=== PATIENT | female | born 1945 | race Caucasian/White ===

== ENCOUNTER → 2024-03-13 13:05 | Outpatient (REF) | payer MEDICARE, SELFPAY | LOC: WDC 13:05 | PROVIDERS: ATTENDING PHYSICIAN Family Medicine | DX: Z12.31 Encounter for screening mammogram for malignant neoplasm of breast (principal) | CPT/HCPCS: 77063; 77067 ==

== ENCOUNTER 2024-09-16 18:33 | Emergency (ER) | payer MEDICARE, SELFPAY ==
[2024-09-16 18:34] VITALS: BMI 20.1
[2024-09-16 18:35] VITALS: BP 175/83
[2024-09-16 21:27] VITALS: BP 151/68
--- NOTE | 2024-09-16 22:08 | ED.GENMED ---
History of Present Illness
General
Chief Complaint: Musculo-Skeletal Complaint
Source: patient
Exam Limitations: none
Time Seen by Provider: 09/16/24 21:51
Nursing documentation reviewed up to this point in time: agreed with
History of Present Illness
History of Present Illness:
Patient presents to ED secondary to persistent left wrist pain, after she tripped on ice and fell backwards, landing on her buttocks with outstretched left hand. Patient denies any other injuries. No loss of sensation or weakness.
Past History
Past History
ED Past Medical History: None
ED Past Surgical History: Appendectomy and Gynecological
Patient has exhibited threatening behavior?: No
Social History
Tobacco: Non-smoker
Alcohol: None
Drug: None
Personal:
Living: with family
Review of Systems
Review of Systems
Allergies reviewed?: Yes
All Other Systems: ROS reviewed and negative except as documented in HPI and ROS
Constitutional: Reports no symptoms
Musculoskeletal: Reports other (Wrist pain)
Skin: Reports no symptoms
Neurological: Reports no symptoms
Phy Exam
Physical Exam
Physical Exam:
Physical Exam
General: mild painful distress, not acutely ill. afebrile
Head: nc/at. eomi
Neck: supple. normal range of motion
Neuro: alert and oriented x 3. no focal neurological deficits
Skin: no rash
Psychiatric: well kept. interactive and cooperative
Extremities: left wrist - swelling with tenderness to palpation without deformity
Course
Orders/Labs/Results
Orders:
Orders
09/16/24 18:38
CR Wrist - Left Min 3 Views Urgent
Comment:
Reason For Exam: injury, pain
Vital Signs
Initial and Last Documented VS:
Initial Vital Signs
Temp Pulse Resp BP Pulse Ox
97.9 F 86 16 175/83 99
09/16/24 18:35 09/16/24 18:35 09/16/24 18:35 09/16/24 18:35 09/16/24 18:35
Last Documented Vital Signs
Temp Pulse Resp BP Pulse Ox
97.9 F 70 18 151/68 100
09/16/24 18:35 09/16/24 21:27 09/16/24 21:27 09/16/24 21:27 09/16/24 21:27
MDM/Problems Addressed
MDM/Problems Addressed:
History, exam, and x-ray consistent with distal radius fracture. Patient remains neurovascular intact. Patient placed on volar splint, along with arm sling, and referred to orthopedic surgery for an outpatient consultation.
*Critical Care Note
Total Time (30-74mins, 75-104mins- exclusive of procedures): Not Applicable
ED Attending Note
-
Portions of this chart may have been created with voice recognition software.� Occasional wrong word or��sound alike� substitutions may have occurred due to the inherent limitations of voice recognition software.
Discharge Plan
Departure
Patient Disposition: Home (Routine Discharge)
Date of Disposition: 09/16/24
Time of Disposition: 22:08
Patient with high blood pressure during this ER visit?: Yes
Condition: Good
Discharge Problem:
Fracture of wrist
Instructions: Wrist Fracture (DC)
Prescriptions:
No Action
tolterodine 4 MG capsule,extended release 24hr
4 mg PO DAILY
olopatadine [Patanol] 1 DROP drops
1 drp OPHTHALMIC PRN PRN (Reason: Allergies)
loratadine 10 MG tablet
10 mg PO DAILY
vitamins-lipotropics 1 TAB tablet
1 tab PO DAILY
calcium carbonate-vitamin D3 [Oyster Shell Calcium-Vit D3] 500 MG tablet
1 tab PO DAILY
vitamin E (dl, acetate) 100 UNITS capsule
100 units PO DAILY
glucosamine [id number] [TripleFlex] 1 EACH tablet
1 ea PO DAILY
multivitamin with folic acid [Tab-A-Ashley] 1 TABLET tablet
1 tab PO DAILY
dicyclomine [Bentyl] 20 MG tablet
20 mg PO Q8HPRN PRN (Reason: pain) Qty: 20 0RF
Referrals:
Yg Weeks MD [Active] -
UNKNOWN - PT DOES,NOT KNOW [Unknown Provider] -
Activity Restrictions/Additional Instructions:
As discussed, please follow-up with referred orthopedic surgeon for further evaluation and treatment.
Interventions
Interventions:
*Risk Screen - Suicide Last Done: 09/16/24 18:35
*General Assessment Last Done: 09/16/24 18:35
*ED COVID-19 Vaccine History Last Done: 09/16/24 18:35
*Nursing Disposition Last Done: 09/16/24 23:00
ED-Musculoskeletal Assessment Last Done: 09/16/24 21:28
Discharge Date and Time
Discharge Date/Time: 09/16/24 23:01
Print Language: CITIZEN OF [place]
== END 2024-09-16 23:01 | disposition home or self-care (01) ==
LOC: EMR 18:33
PROVIDERS: EMERGENCY PHYSICIAN Emergency Medicine; FAMILY PHYSICIAN Family Medicine
DX: S52.592A Other fractures of lower end of left radius, initial encounter for closed fracture (principal); S52.612A Displaced fracture of left ulna styloid process, initial encounter for closed fracture; W01.0XXA Fall on same level from slipping, tripping and stumbling without subsequent striking against object, initial encounter; R03.0 Elevated blood-pressure reading, without diagnosis of hypertension
CPT/HCPCS: 99283; 29125; 73110